=== PATIENT | female | born 1990 | race Caucasian/White ===

== ENCOUNTER 2018-12-22 11:29 | Inpatient (IN) | payer OTHER ==
[2018-12-22] MEDS ORDERED: Buffered Lidocaine 1% SYRIN* 1 ML/SYRINGE INTRADERM ONE (12:43)
[2018-12-22] MEDS ORDERED: Lactated Ringers 1000 ML Bag* 1,000 ML IV ONE ×2 (12:43→14:06)
--- NOTE | 2018-12-22 12:54 | HP ---
General Information - Reason for Visit at 41 0/7 with regular uterine contractions and possible ROM - General Information Maternal Age: 28 Grav: 2 Para: 1 SAB: 0 IEA: 0 Estimated Due Date: 12/15/18 Determined By: LMP Maternal Blood Type and Rh: A Positive - Results this Serology/RPR Result: Non-Reactive Rubella Result: Immune HBsAg Result: Negative HIV Result: Negative GBS Culture Result: Negative Past Medical History Delivery History: Hx Uncomplicated Vaginal Delivery Pertinent Past Medical History: See Records Past Medical History Comment: Depression, on Zoloft Migraine with aura Pertinent Past Surgical History: None Pertinent Family History: Non-Contributory - Antepartal Records Antepartal Records: Reviewed, Complicated by: - +E antibody Review of Systems Constitutional: Uncomfortable CV Complaint: No Respiratory: Shortness of Breath: No Gastrointestinal: No Nausea/Vomiting, Normal Bowel Movement Genitourinary: Leaking Fluid, No Dysuria, No Bleeding Musculoskeletal: No Epigastric Pain, Contractions Neurological: No Headache, No Visual Changes Movement: Normal Exam Allergies/Adverse Reactions: Allergies No Known Allergies Allergy (Verified 12/22/18 12:21) B/P: 109/69, P: 80, RR: 20, T: 98.4 - Measurements Height: 5 ft 2 in Weight: 160 lb Weight in lbs: [id number] Body Mass Index (BMI): 29.2 Pre- Weight: 128 lb Weight Gained This : 32 lbs and 0 ozs - Exam Breast: Breast Exam Deferred Extremities: No Edema Heart: Normal Rhythm/Heart Sounds HEENT: No Significant Findings Lungs: Clear Bilaterally Reflexes: DTR 2+ Thyroid: No Thyromegaly - Abdominal Exam Abdomen Exam: Non-Tender, Fundal Height Consistent with Dates - Ultrasound/Biophysical Profile Ultrasound Status: Not Done Targeted Exam Findings See L&D Outpatient Visit Provider Note for Findings: N/A Estimated Weight: 8 lb Cervical Exam: 4cm, 5cm Effacement: 80% Station: -1 Presenting Part: Vertex Membrane Status: SROM Amniotic Fluid Evaluation: Clear Bleeding/Discharge: Bloody Show EFM Findings - External Monitor Findings Baseline Heart Rate: 125 External Monitor Findings: Accelerations Present, No Pattern of Variable or Late Decelerations, Variability Moderate, Baseline Stable Contractions: Regular, Moderate, 45-90 Seconds Contraction Frequency: q2-3.5 minutes Assessment/Plan - Assessment A: 28 yo with IUP at 41 0/7 weeks in active labor. VE: 4-5/80/-1, SROM of pink fluid, bloody show GBS negative P: Plans epidural for pain management, will eat lunch first Anticipate SVB - Plan Plan: Admit - Anticipate Vaginal Delivery - Date/Time of Admission Date of Admission: 12/22/18 Time of Admission: 11:30
[2018-12-22] MEDS ORDERED: Lactated Ringers 1000 ML Bag* 1,000 ML IV SCH ×3 (13:00→19:00)
[2018-12-22] MEDS ORDERED: Lidocaine 2% EPI 1:200000 MPF*10-20 ML VIAL ONE (13:25)
[2018-12-22] MEDS ORDERED: OBEPIDURAL* 250 ML EPIDURAL ONE (13:28)
[2018-12-22] MEDS ORDERED: Famotidine TAB* 20 MG PO PRN (14:06)
[2018-12-22] MEDS ORDERED: Sodium Citrate/Citric Acid* 15 ML UDC PO PRN (14:06)
[2018-12-22] MEDS ORDERED: Phenylephrine 40 MCG/ML SYRINGE IV PUSH PRN (14:06)
[2018-12-22 14:12] LABS: ABS Basophils 0 10^3/ul (0-0.2); ABS Eosinophils 0 10^3/ul (0-0.6); ABS Monocytes 0.5 10^3/ul (0-0.8); ABS Neutrophils 9.4 10^3/ul (1.5-7.7); ABS Nucleated RBC 0 10^3/ul; Eosinophil % 0.1 %; Hematocrit 41 % (33-41); Hemoglobin 13.7 g/dL (12.0-16.0); Lymphocyte % 17.1 %; Mean Corpuscular HGB Conc 33 g/dL (31-36); Mean Corpuscular Hemoglobin 31 pg (27-31); Mean Corpuscular Volume 94 fL (80-97); Mean Platelet Volume 9.2 fL (7.4-10.4); Nucleated Red Blood Cells % 0; Platelet Count 196 10^3/uL (150-450); Red Blood Count 4.37 10^6 /uL (3.70-4.87); Red Cell Distribution Width 13 % (10.5-15)
--- NOTE | 2018-12-22 14:30 | PN ---
Progress Note - Progress Note Date of Service: 12/22/18 Note: S: Comfortable with epidural, taking deep breaths so she can relax and rest. Family at bedside providing support O: VS: B/P: 99/57, P:85, RR: 20, T: 97.8 FHR: 125, moderate variability, +accelerations. One isolated variable after drop in B/P, phenylephrine given IVP UCs: q1.5-3.5min, moderate. VE: 5.5/100/-1, leaking fluid - light meconium A: IUP at 41 0/7 weeks. Category II FHR Active labor P: Tatiana plans to try to nap, will try side-lying position Will re-assess in 2-3 hours or sooner as needed Anticipate SVB
[2018-12-22] MEDS ORDERED: OBEPIDURAL* 250 ML EPIDURAL SCH (15:00)
--- NOTE | 2018-12-22 16:52 | PN ---
Progress Note - Progress Note Date of Service: 12/22/18 Note: S: starting to feel more pressure with UCs, mostly in back O: VS: 87/50, P: 73, RR: 20, T: 97.9 FHR: baseline 120, moderate variability, +accels, occasional early decelerations UCS: q1-3 minutes, moderate to firm VE: 10/100/-1 A: IUP at 41 0/7 weeks Category 1 FHR, no evidence of metabolic acidemia P: Patient does not feel urge to bear down, discussed pushing vs. laboring down Prefers to labor down at this time Anticipate SVB, will re-evaluate in one hour or sooner as needed
[2018-12-22] MEDS ORDERED: Oxytocin in LR* 0 UNITS/0 ML BAG IVPB ONE (17:01)
[2018-12-22] MEDS ORDERED: Witch Hazel PAD* JAR TOPICAL PRN (18:28)
[2018-12-22] MEDS ORDERED: Dibucaine 1% 28.35 GM TUBE PR PRN (18:28)
[2018-12-22] MEDS ORDERED: Acetaminophen TAB* 325 MG PO PRN (18:28)
[2018-12-22] MEDS ORDERED: Glycerin ADULT SUPP PR PRN (18:28)
--- NOTE | 2018-12-22 18:37 | PROCNOTE ---
[facility] OB: Delivery Note - Delivery A Date of : 12/22/18 Time of : 18:05 Clos[place] Sex: Male Score 1 Minute: 8 Score 5 Minutes: 9 Gestational Age in Weeks and Days at Delivery: 41 Weeks and 0 Days Delivery Method: Spontaneous Vaginal Labor: Spontaneous Did Patient attempt ?: N/A, No Previous Amniotic Fluid: Meconium Estimated Blood Loss: 300 Anesthesia/Analgesia: CEI for Labor Anesthesia Comment: Dr. Shirley Delivered By: Kaleigh Ashraf - Nursery Level of Nursery: Regular/Bedside - Perineum Perineal Injury: Abrasion Only - Not Repaired, Perineal Laceration, 1st Degree Perineal Injury Comment: Small 1st degree, hemostatic, approximating well. Not repaired Perineal Repair: None - Additional Delivery Notes Additional Delivery Notes: 28 yo with onset of active labor and SROM of meconium fluid. Epidural placed, received good relief. Progressed to complete and labored down for one hour prior to pushing. Active phase of labor 9 hrs, 5 minutes. Pushed for 30 minutes to delivery of liveborn male in the OA to JUDITH position. Shoulders followed easily with next push. to mother's chest, dried and stimulated. Bulb suctioned for copious secretions, spontaneous cry. Apgars 8 and 9. Cord was clamped x 2 and cut by FOB. Delivery of intact conn placenta soon followed, fundus firm with massage. Perineum inspected and left periurethral and 1st degree perineal lacerations noted. Hemostatic, approximating well, no need for repair. Mother and baby in stable condition, initiating breast feeding at time of this note. EDV=251 cc.
[2018-12-22] MEDS: Ibuprofen TAB* 600 MG PO PRN (19:31)
[2018-12-22] MEDS: Docusate CAP* 100 MG PO SCH (19:31)
[2018-12-22] MEDS ORDERED: Simethicone TAB* 80 MG TAB.CHEW PO SCH (21:00)
[2018-12-23] MEDS: Ibuprofen TAB* 600 MG PO PRN ×3 (01:58→18:41)
[2018-12-23 07:58] LABS: ABS Basophils 0 10^3/ul (0-0.2); ABS Eosinophils 0.1 10^3/ul (0-0.6); ABS Lymphocytes 2.3 10^3/ul (1.0-4.8); ABS Monocytes 0.7 10^3/ul (0-0.8); ABS Neutrophils 8.5 10^3/ul (1.5-7.7); ABS Nucleated RBC 0 10^3/ul; Eosinophil % 0.5 %; Hematocrit 35 % (33-41); Hemoglobin 11.6 g/dL (12.0-16.0); Lymphocyte % 20.1 %; Mean Corpuscular HGB Conc 34 g/dL (31-36); Mean Corpuscular Hemoglobin 31 pg (27-31); Mean Corpuscular Volume 93 fL (80-97); Mean Platelet Volume 9.2 fL (7.4-10.4); Nucleated Red Blood Cells % 0; Platelet Count 174 10^3/uL (150-450); Red Cell Distribution Width 14 % (10.5-15); White Blood Count 11.6 10^3/uL (3.5-10.8)
[2018-12-23] MEDS ORDERED: Ferrous Gluconate TAB* 324 MG TAB PO SCH (09:00)
[2018-12-23] MEDS: Docusate CAP* 100 MG PO SCH ×3 (09:16→20:19)
[2018-12-24 08:43] VITALS: BP 87/56
[2018-12-24] MEDS: Docusate CAP* 100 MG PO SCH (09:35)
[2018-12-24] MEDS: Ibuprofen TAB* 600 MG PO PRN (09:37)
== END 2018-12-24 11:52 | disposition home or self-care (01) | DRG 807 ==
LOC: MCHOBOUT 11:29 → MCHOB 12:55
PROVIDERS: ADMIT Midwife; ATTEND Midwife
PROC: 4A1HXCZ Monitoring of Products of Conception, Cardiac Rate, External Approach (ICD-10-PCS; principal; 2018-12-22)
PROC: 10E0XZZ Delivery of Products of Conception, External Approach (ICD-10-PCS; 2018-12-22)
DX: O48.0 Post-term pregnancy (principal); Z37.0 Single live birth; Z3A.41 41 weeks gestation of pregnancy; O99.344 Other mental disorders complicating childbirth; F32.9 Major depressive disorder, single episode, unspecified; O77.0 Labor and delivery complicated by meconium in amniotic fluid; O76 Abnormality in fetal heart rate and rhythm complicating labor and delivery; O70.0 First degree perineal laceration during delivery; O71.82 Other specified trauma to perineum and vulva; O75.89 Other specified complications of labor and delivery; T78.49XA Other allergy, initial encounter
CPT/HCPCS: 36415; 85025; 86850; 86900; 86901; A9270-GY

== ENCOUNTER 2022-06-17 04:26 | Inpatient (IN) ==
[2022-06-17] MEDS: Lactated Ringers 1000 ml BAG 1,000 ML IV ONE ×2 (04:40→05:28)
[2022-06-17] MEDS ORDERED: Buffered Lidocaine 1% SYRIN 1 ml INTRADERM ONE (05:01)
[2022-06-17 05:03] LABS: Hematocrit 39 % (35-47); Hemoglobin 12.6 g/dL (12.0-16.0); Mean Corpuscular HGB Conc 33 g/dL (31-36); Mean Corpuscular Hemoglobin 29 pg (27-31); Mean Corpuscular Volume 88 fL (80-97); Platelet Count 180 10^3/uL (150-450); Red Blood Count 4.38 10^6 /uL (3.70-4.87); Red Cell Distribution Width 18 % (10-15); White Blood Count 7.2 10^3/uL (3.5-10.8)
[2022-06-17] MEDS ORDERED: OBEPIDURAL (200 ML) 200 ML EPIDURAL ONE (05:13)
[2022-06-17] MEDS ORDERED: Lidocaine 1.5% EPI 1:200,000 30 ML SDV ONE (05:14)
[2022-06-17 05:21] LABS: Urine Benzodiazepine Screen None Detected (None Detect); Urine Cannabinoids Screen None Detected (None Detect); Urine Opiates Screen None Detected (None Detect)
[2022-06-17] MEDS: Lactated Ringers 1000 ml BAG 1,000 ML IV SCH ×2 (06:08→08:47)
[2022-06-17] MEDS ORDERED: Lactated Ringers 1000 ml BAG 1,000 ML IV ONE (07:23)
[2022-06-17] MEDS ORDERED: Lactated Ringers 1000 ml BAG 500 ML IV PRN ×2 (07:23)
[2022-06-17] MEDS ORDERED: Phenylephrine 40 mcg/mL 10mL (400mcg) SYRINGE IV PUSH PRN ×2 (07:23)
[2022-06-17] MEDS ORDERED: Sodium Citrate/Citric Acid LIQ 15 ML UDC PO PRN (07:23)
[2022-06-17] MEDS ORDERED: OBEPIDURAL (200 ML) 200 ML EPIDURAL SCH (08:00)
[2022-06-17] MEDS ORDERED: Lactated Ringers 1000 ml BAG 1,000 ML IV SCH ×2 (08:00→11:00)
[2022-06-17] MEDS ORDERED: Oxytocin in LR 20,000 MILLI.UNIT/1,000 ML BAG IV ONE (09:44)
[2022-06-17] MEDS ORDERED: Oxytocin in LR 20,000 MILLI.UNIT/1,000 ML BAG IV SCH (10:15)
[2022-06-17] MEDS ORDERED: Witch Hazel PAD JAR TOPICAL PRN (10:15)
[2022-06-17] MEDS ORDERED: Dibucaine 1% OINT 28.35 GM TUBE PR PRN (10:15)
[2022-06-18 06:32] LABS: ABS Eosinophils 0.1 10^3/ul (0-0.6); ABS Lymphocytes 1.6 10^3/ul (1.0-4.8); ABS Monocytes 0.4 10^3/ul (0-0.8); ABS Neutrophils 6.9 10^3/ul (1.5-7.7); Eosinophil % 1.3 %; Hematocrit 33 % (35-47); Hemoglobin 10.8 g/dL (12.0-16.0); Lymphocyte % 17.8 %; Mean Corpuscular HGB Conc 33 g/dL (31-36); Mean Corpuscular Hemoglobin 30 pg (27-31); Mean Corpuscular Volume 90 fL (80-97); Mean Platelet Volume 8.7 fL (7.4-10.4); Platelet Count 157 10^3/uL (150-450); Red Blood Count 3.63 10^6 /uL (3.70-4.87); Red Cell Distribution Width 18 % (10-15); White Blood Count 9.1 10^3/uL (3.5-10.8)
[2022-06-18 08:28] VITALS: BP 106/71
== END 2022-06-18 13:46 | disposition home or self-care (01) | DRG 560 ==
LOC: MCHOBOUT 04:26 → MCHOB 04:55
PROVIDERS: ADMIT Midwife; ATTEND Midwife